=== PATIENT | male | born 2000 | race Caucasian/White ===

== ENCOUNTER 2022-02-18 19:37 | Emergency (ER) | payer OTHER, SELFPAY ==
[2022-02-18 19:56] VITALS: BP 104/79; PULSE 79; RESP 16; TEMP 36.8
--- NOTE | 2022-02-18 20:00 | DI.RAD_ITS ---
Exam(s) XR ANKLE LT COMPLETE EXAM: XR ANKLE LT COMPLETE CLINICAL HISTORY: rolled ankle playing basketball. TECHNIQUE: 2D digital imaging was performed. COMPARISON: No exams were available for comparison FINDINGS: 3 views There is no evidence of fracture nor widening of the ankle mortise. Talar dome unremarkable. Bone d ensity normal. No osseous lesions. Base of the 5th metatarsal is intact. IMPRESSION: No acute fracture evident. DATA REPOSITORY: RADIATION DOSE DELIVERED:
--- NOTE | 2022-02-18 20:00 | DI.RAD_ITS ---
Exam(s) XR ELBOW RT COMPLETE EXAM: XR ELBOW RT COMPLETE CLINICAL HISTORY: fell on outstretched arm; c/o elbow pain. TECHNIQUE: 2D digital imaging was performed. COMPARISON: No exams were available for comparison FINDINGS: 3 views No evidence of fracture or joint effusion. No swelling of the olecranon bursa. Bone density normal. No osseous lesions nor erosions. No loose intra-articular body evident. No degenerative changes. No radiopaque foreign body. IMPRESSION: No significant radiograph findings in the right elbow. DATA REPOSITORY: RADIATION DOSE DELIVERED:
--- NOTE | 2022-02-18 21:21 | DI.VRAD_ITS ---
Addendum created by Juan Diego Perez MD on 02/18/2022 9:26:54 PM EDT: Addendum: There is a typographical error in the impression of the report. It was intended to read as follows: Impression: No acute findings. Initial report created on 02/18/2022 9:21:14 PM EDT: PROCEDURE INFORMATION: Exam: XR Right Elbow Exam date and time: 02/18/2022 8:51 PM Age: 21 years old Clinical indication: Other: Fell on outstretched arm, C/O elbow pain TECHNIQUE: Imaging protocol: XR Right elbow. Views: 3 or more views. Total images: 3 COMPARISON: No relevant prior studies available. FINDINGS: Bones/joints: No fractures. No blastic or lytic lesions. Radiocapitellar alignment and ulnotrochlear alignment are normal. No gross joint effusion. Soft tissues: No periostitis or osteolysis. No gross soft tissue abnormalities. No radiopaque foreign bodies. Other findings: Proximal radioulnar alignment is normal. IMPRESSION: No acute findings. Acute Dictated and Authenticated by: Juan Diego Perez MD. Ordering:[employer] Provider Temporary
--- NOTE | 2022-02-18 21:26 | DI.VRAD_ITS ---
PROCEDURE INFORMATION: Exam: XR Left Ankle Exam date and time: 02/18/2022 8:54 PM Age: 21 years old Clinical indication: Other: Rolled ankle playing basketball TECHNIQUE: Imaging protocol: XR Left ankle. Views: 3 or more views. Total images: 3 COMPARISON: No relevant prior studies available. FINDINGS: Bones/joints: No fractures. No blastic or lytic lesions. The ankle mortise joint is well maintained. Suspect small ankle joint effusion with distention of the anterior recess on the lateral view. The visualized hindfoot and midfoot are grossly well aligned. No hindfoot coalition. Soft tissues: No periostitis or osteolysis. Question mild periarticular soft tissue swelling. No radiopaque foreign bodies. IMPRESSION: 1. No acute osseous injuries. 2. Question mild periarticular soft tissue swelling and small ankle joint effusion. Dictated and Authenticated by: Juan Diego Perez MD. Ordering:P.AIDE Provider Temporary
--- NOTE | 2022-02-18 22:00 | W.ED.GENAD ---
Discharge Plan Disposition Patient Disposition: HOME Condition: Stable Discharge Details Chief Complaint: Orthopedic Clinical Impression: Elbow pain, right, Left ankle sprain Primary Care Provider: None,None ED Provider: Nabil Preciado Home Meds and New Rx's Prescriptions: No Action No Known Home Meds Discharge Instructions Instructions: Ankle Sprain (ED), Elbow Sprain (ED) Additional Instructions: X-rays are unremarkable for any bony abnormality. Rest, elevate, cool compress every 2 hours for 20 minutes. [id number] Tylenol and/or Motrin as directed for discomfort. Please watch for new or worsening symptoms and return to the ER for any concerns. If symptoms persist greater than 5-7 days with conservative measures then follow-up with your PCP is reasonable. Medical Decision Making 21-year-old gentleman, [id number], playing basketball prior to arrival presenting with a right elbow and left ankle injury. Clinically this appears to be muscular in nature. Will obtain x-ray of the right elbow and left ankle to be sure of any bony involvement. Neuro, vascular, tendon intact. X-ray reveals soft tissue swelling but no bony involvement Discussed x-rays with patient, he declined splint or crutches and is comfortable discharge. Standard discharge and return precautions were provided. Patient understands, is agreeable to this plan, and has no additional questions or concerns upon discharge. This documentation was generated using [employer] dictation system, please disregard any oddities of phrase or misspellings. Imaging Data Radiologic Study: Attestation: I personally reviewed and interpreted this imaging study as follows: Imaging: X-Ray Radiologist's impression: Exam: XR Left Ankle Exam date and time: 02/18/2022 8:54 PM Age: 21 years old Clinical indication: Other: Rolled ankle playing basketball TECHNIQUE: Imaging protocol: XR Left ankle. Views: 3 or more views. Total images: 3 COMPARISON: No relevant prior studies available. FINDINGS: Bones/joints: No fractures. No blastic or lytic lesions. The ankle mortise joint is well maintained. Suspect small ankle joint effusion with distention of the anterior recess on the lateral view. The visualized hindfoot and midfoot are grossly well aligned. No hindfoot coalition. Soft tissues: No periostitis or osteolysis. Question mild periarticular soft tissue swelling. No radiopaque foreign bodies. IMPRESSION: 1. No acute osseous injuries. 2. Question mild periarticular soft tissue swelling and small ankle joint effusion. Radiologic Study #2: Attestation: I personally reviewed and interpreted this imaging study as follows: Imaging: X-Ray Radiologist's impression: PROCEDURE INFORMATION: Exam: XR Right Elbow Exam date and time: 02/18/2022 8:51 PM Age: 21 years old Clinical indication: Other: Fell on outstretched arm, C/O elbow pain TECHNIQUE: Imaging protocol: XR Right elbow. Views: 3 or more views. Total images: 3 COMPARISON: No relevant prior studies available. FINDINGS: Bones/joints: No fractures. No blastic or lytic lesions. Radiocapitellar alignment and ulnotrochlear alignment are normal. No gross joint effusion. Soft tissues: No periostitis or osteolysis. No gross soft tissue abnormalities. No radiopaque foreign bodies. Other findings: Proximal radioulnar alignment is normal.No acute findings. HPI General Mode of arrival: ambulatory. Date/Time Provider Initiated Documentation: 02/18/22 21:59. Limitations to Documentation: no limitations. Information obtained by: patient. History of Present Illness 21 year old M presents to the emergency department with the chief complaint of R elbow, L ankle pain, described as moderate, with intensity rated at 5. Quality is described as aching, and is localized to the left, right, upper extremity and lower extremity. Patient reports no radiation. Patient started experiencing this hour(s) (4) and it has been constant. No relieving factors improve symptom(s), Movement worsens symptoms . Patient notes no other symptoms.. Patient did receive the following treatments prior to arrival, none Related Data Home Medications Medication Instructions Recorded Confirmed Unknown [No Known Home Meds] 02/18/22 02/18/22 Allergies Allergy/AdvReac Type Severity Reaction Status Date / Time No Known Allergies Allergy Unverified 02/18/22 19:59 General Stated Complaint: Orthopedic PAM: 4 Review of Systems Constitutional Constitutional: Denies fever(s) and Denies weakness Musculoskeletal Musculoskeletal: Denies deformity, Reports arthralgias, Denies numbness, Reports stiffness and Denies tingling Integumentary/Breasts Skin/Breast: Denies rash Neurologic Neurologic: Denies numbness, Denies tingling and Denies weakness PFSH All Active Problems (Updated 02/18/22 @ 22:06 by ARTEM Kong) Elbow pain, right (Acute) Left ankle sprain (Acute) Social History Smoking/Tobacco Use Status: Never Smoking risk assessment performed?: Yes Alcohol Intake: never Drug use: Never Substance use type: does not use Do you feel safe at home: Yes Do you feel safe in your relationship?: Yes Exam Const General: cooperative, healthy appearing, comfortable and no acute distress Orientation: alert and awake [facility] Head: normal to inspection, normocephalic and atraumatic Eyes General: appearance normal, both eyes and all related structures Conjunctivae: conjunctivae normal Neck Neck: normal visual inspection, full ROM, trachea midline and supple Resp Effort & Inspection: normal respiratory effort and able to speak in complete sentences Cardio Rate: regular rate Rhythm: regular rhythm Skin General skin exam: no rashes or lesions noted Neuro General: patient alert, patient awake, moves all extremities and no focal motor deficits Cognition: normal cognition Speech: speech normal Gait: antalgic Motor: muscle tone normal throughout Sensory Exam: no sensory deficits noted Extrem Right upper extremity: normal to inspection, full ROM and elbow/forearm Details: normal to inspection and normal ROM; no swelling Left lower extremity: full ROM, normal capillary refill and ankle Details: tenderness Location: of the lateral malleolus and swelling Details: laterally (mild) Psych Appearance: grossly normal Mental Status: mental status grossly normal Course Vital Signs Vital signs: Vital Signs Temperature 36.8 C 02/18/22 19:56 Pulse 79 02/18/22 19:56 Respiratory Rate 16 02/18/22 19:56 Blood Pressure 104/79 02/18/22 19:56 Temperature 36.8 C 02/18/22 19:56 Temperature Source Oral 02/18/22 19:56 Pulse 79 02/18/22 19:56 Respiratory Rate 16 02/18/22 19:56 Respiratory Effort Non-Labored 02/18/22 20:00 Blood Pressure 104/79 02/18/22 19:56 Pain Level 4 02/18/22 19:56
[2022-02-18 22:20] VITALS: BP 102/48; PULSE 48; RESP 14; O2SAT 99
== END 2022-02-18 22:21 | disposition home or self-care (01) ==
PROVIDERS: Emergency Provider Physician Assistant
DX: S93.492A Sprain of other ligament of left ankle, initial encounter (principal); M25.521 Pain in right elbow; X58.XXXA Exposure to other specified factors, initial encounter
CPT/HCPCS: 99284; 73080; 73610; 99283